=== PATIENT | male | born 1935 | race Caucasian/White ===

== ENCOUNTER 2018-04-07 06:01 | Inpatient (IN) | payer OTHER ==
--- NOTE | 2018-04-06 15:44 | GHP ---
DATE OF ADMISSION: 04/07/2018 HISTORY OF PRESENT ILLNESS: Patient is an 83-year-old man admitted for a right total knee arthroplas ty. His pain has limited his activities of daily living. It is painful to go up and down stairs. I t is painful walking. He has pain at night. He is aware of swelling and stiffness in both knees. Tonia farr has tried in the past activity modification and injection therapies. He is admitted for a right to mark knee arthroplasty. PAST MEDICAL HISTORY: He is treated for elevated cholesterol. He was treated with radioactive seed implantation for prostate cancer about 5 years ago. He experiences nocturia 3-4 times per night. No history of heart disease, stents, DVT, hepatitis, MRSA staph infections, sleep apnea or bleeding pro blems. CURRENT MEDICATIONS: Crestor 10 mg per day, Flomax 0.4 mg per day. ALLERGIES: Drug allergy: None. Metal allergy: None. Latex allergy: None. SOCIAL HISTORY: The patient is . He lives with his . He does not smoke cigarettes or dr ink alcohol. He is retired. PHYSICAL EXAMINATION: VITAL SIGNS: Height 5 feet 8 inches. Weight 173 pounds. BMI 23.6. EYES: C onjunctivae and sclerae are clear. Pupils are round and reactive. MOUTH: Good oral hygiene. He carlisle s complete upper and lower dentures. CHEST: Clear. HEART: Regular rhythm with no murmurs. EXTREM ITIES: Pertinent findings limited to his right knee. He has varus deformity. Medial joint line ten derness. He has an effusion. He has pseudolaxity of his medial collateral ligament. He has a 10 de gree flexion contracture and further flexion to 120 degrees. IMAGING: Films from March 12, 2018, show severe medial compartment degenerative arthritis. He i s [id number] in the medial compartment. Varus alignment is present. He also has significant baugh lofemoral arthritis in the right knee. IMPRESSION ON ADMISSION: 1. 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 He is prepared for right total knee arthroplasty. 2. Treatment for elevated cholesterol. 3. History of prostate cancer. PLAN: He will undergo a right total knee arthroplasty. The surgery has been described to him, inclu ding the risks, complications, expectations, and recovery time. I have stressed the importance of po stoperative physical therapy. Advised him that approximately 85% of patients are very satisfied with the result with total knee replacement. A small percentage of people are unhappy with their result , primarily because the knee continues to be painful. All his questions have been answered and he co nsents to surgery. Copy requested to: Dr. Osvaldo Valenzuela, [place] /[id number]/MODL
[~2018-04-07 06:01] MED LIST: POVIDONE-IODINE 20 ML in SODIUM CL IRRIG SOLUTION 500 ML IRR ONE; ROPIVACAINE 0.2% 80 MG, EPINEPHrine 0.2 MG, KETOROLAC TROMETHAMINE 30 MG in SYRINGE 0 ML IU ONE; TRANEXAMIC ACID 1,000 MG in NS 100 ML IV ONE; TRANEXAMIC ACID 3,000 MG in NS (SYRINGE) 50 ML IRR ONE
[2018-04-07] MEDS ORDERED: VANCOMYCIN 1 GM VIAL ONE (06:08)
[2018-04-07] MEDS ORDERED: TRANEXAMIC ACID 3,000 MG/50 ML BAG IRR ONE (06:08)
[2018-04-07] MEDS ORDERED: ceFAZolin 1 GM/5 ML SYR ONE (06:10)
[2018-04-07] MEDS ORDERED: GABAPENTIN 300 MG CAP PO ONE (06:29)
[2018-04-07] MEDS ORDERED: ACETAMINOPHEN 325 MG TAB PO ONE (06:29)
[2018-04-07] MEDS ORDERED: ONDANSETRON 4 MG/2 ML VIAL IVP ONE (06:29)
[2018-04-07] MEDS ORDERED: FAMOTIDINE 20 MG TAB PO ONE (06:29)
[2018-04-07] MEDS ORDERED: DEXAMETHASONE 4 MG/ML VIAL IVP ONE (06:29)
[2018-04-07] MEDS ORDERED: ceFAZolin 2 GM/DEXTROSE 100 ML IV ONE (06:29)
[2018-04-07] MEDS ORDERED: LIDOCAINE 1% 2 ML INJ ID PRN (06:31)
[2018-04-07] MEDS ORDERED: LR 1,000 ML IV ONE (06:31)
[2018-04-07] MEDS ORDERED: DEXAMETHASONE 4 MG/ML VIAL ONE (06:57)
--- NOTE | 2018-04-07 06:57 | PDHPUP ---
History & Physical Update H&P update statement: This history and physical update is based on an assessment of the patient which was completed after admission or registration (within 24 hours), but prior to the surgery/procedure. H&P update: H&P reviewed & patient examined
[2018-04-07] MEDS ORDERED: BUPIVACAINE/DEXTROSE 7.5MG/ML 2 ML SPINAL AMP SP ONE (07:07)
[2018-04-07] MEDS ORDERED: PROPOFOL 200 MG/20 ML VIAL ONE ×2 (07:07→08:06)
[2018-04-07] MEDS ORDERED: fentaNYL 100 MCG/2 ML INJ ONE (07:07)
--- NOTE | 2018-04-07 07:13 | PDANEPAE ---
ANE Past Medical History - Cardiovascular History Hx Hypertension: No Hx Arrhythmias: No Hx Chest Pain: No Hx Coronary Artery / Peripheral Vascular Disease: No Hx CHF / Valvular Disease: No Hx Palpitations: No - Pulmonary History Hx COPD: No Hx Asthma/Reactive Airway Disease: No Hx Recent Upper Respiratory Infection: No Hx Oxygen in Use at Home: No Hx Sleep Apnea: No Sleep Apnea Screening Result - Last Documented: Negative - Neurologic History Hx Cerebrovascular Accident: No Hx Seizures: No Hx Dementia: No - Endocrine History Hx Diabetes: No - Renal History Hx Renal Disorders: Yes Renal History Comment: SOME UA INCONT POST PROSTATECTOMY - Liver History Hx Hepatic Disorders: No - Neurological & Psychiatric Hx Hx Neurological and Psychiatric Disorders: No - Cancer History Hx Cancer: Yes Cancer History Comment: PROSTATE - Congenital Disorder History Hx Congenital Disorders: No - GI History Hx Gastrointestinal Disorders: No - Other Health History Other Health History: FULL DENTURES. OSTEOARTHRITIS - Chronic Pain History Chronic Pain: Yes (RT KNEE) - Surgical History Prior Surgeries: PROSTATECTOMY 2012. FELIX. MIGUEL ÁNGEL CATARACTS. RT IN HERNIA ANE Review of Systems Review of Systems: - Exercise capacity METS (RN): 4 METS ANE Patient History - Allergies Allergies/Adverse Reactions: No Known Allergies Allergy (Unverified 03/19/18 11:02) - Home Medications Home Medications: Ascorbic Acid [Vitamin C 500 mg (*)] 500 mg PO DAILY 03/19/18 [Last Taken Unknown] Aspirin [Aspirin 81mg (*)] 81 mg PO DAILY 03/19/18 [Last Taken Unknown] C/E/Zn/Cu/OM3/DHA/EPA/LUT/ZEAX [Preservision Areds 2 Softgel] 1 each PO BID [Last Taken Unknown] Calcium Carbonate/Vitamin D3 [CALCIUM 600 + VIT D TABLET] 1 each PO DAILY [Last Taken Unknown] Herbals/Supplements -Info Only 1 ea PO DAILY 03/19/18 [Last Taken Unknown] Multivitamins [Multivitamin (*)] 1 each PO DAILY 03/19/18 [Last Taken Unknown] Polyvinyl Alcohol/Povidone/Pf [Refresh Classic Eye Drops] 1 drop EACHEYE DAILY 03/19/18 [Last Taken Unknown] Rosuvastatin Calcium [Crestor 10mg (RX)] 10 mg PO DAILY 03/19/18 [Last Taken Unknown] Tamsulosin HCl [Flomax 0.4 MG (*)] 0.4 mg PO DAILY 03/19/18 [Last Taken Unknown] - NPO status NPO Since - Liquids (Date): 04/07/18 NPO Since - Liquids (Time): 06:40 NPO Since - Solids (Date): 04/06/18 NPO Since - Solids (Time): 18:00 - Smoking Hx Smoking Status: Never smoked ANE Labs/Vital Signs - Vital Signs Blood Pressure: 139/91 Heart Rate: 89 Respiratory Rate: 20 O2 Sat (%): 93 Height: 175.26 cm Weight: 78.925 kg ANE Physical Exam - Airway Neck exam: FROM Mallampati Score: Class 1 Mouth exam: dentures - Pulmonary Pulmonary: no respiratory distress, no rales or rhonchi, clear to auscultation - Cardiovascular Cardiovascular: regular rate and rhythym, no murmur, rub, or gallop, pulses symmetric bilaterally - ASA Status ASA Status: III ANE Anesthesia Plan Anesthesia Plan: spinal Regional Anesthesia: single shot NB, adductor canal FNB
[2018-04-07] MEDS ORDERED: ALBUTEROL 3 ML DEYVIAL IH PRN (07:43)
[2018-04-07] MEDS ORDERED: NALOXONE HCL 0.4 MG/ML INJ IVP PRN (07:43)
[2018-04-07] MEDS ORDERED: LR 500 ML IV PRN (07:43)
[2018-04-07] MEDS ORDERED: ONDANSETRON 4 MG/2 ML VIAL IVP PRN ×2 (07:43→09:15)
[2018-04-07] MEDS ORDERED: fentaNYL 100 MCG/2 ML INJ IVP PRN (07:43)
[2018-04-07] MEDS ORDERED: DEXAMETHASONE 4 MG/ML VIAL IVP PRN (07:43)
[2018-04-07] MEDS ORDERED: LIDOCAINE 2% 2 ML INJ ONE (07:45)
[2018-04-07] MEDS ORDERED: ROPIVACAINE HCL 150 MG/30 ML INJ ONE (07:45)
--- NOTE | 2018-04-07 08:57 | POSTOPPROG ---
Post Op Note Date of Operation: 04/07/18 Surgeon: Camacho Banegas Teacher Ballet: Asael/Arlin Anesthesiologist: Mauro Anesthesia: IV Sedation, Spinal Post-op Diagnosis: R knee arthritis Procedure: R TKA Inf/Abcess present in the surg proc area at time of surgery?: No EBL: 50-100 (ACB in PACU)
[2018-04-07] MEDS ORDERED: LACTULOSE 20 GM/30 ML UDCUP PO PRN (09:15)
[2018-04-07] MEDS ORDERED: MAGNESIUM HYDROXIDE 30 ML UDCUP PO PRN (09:15)
[2018-04-07] MEDS ORDERED: METOCLOPRAMIDE 10 MG/2 ML VIAL IVP PRN (09:15)
[2018-04-07] MEDS ORDERED: DIPHENOXYLATE/ATROPINE LOMOTIL 1 TAB PO PRN (09:15)
[2018-04-07] MEDS ORDERED: diphenhydrAMINE 25 MG CAP PO PRN (09:15)
[2018-04-07] MEDS ORDERED: PROMETHAZINE HCL 25 MG SUPPR PR PRN (09:15)
[2018-04-07] MEDS ORDERED: PROMETHAZINE HCL 25 MG/ML INJ IVP PRN (09:15)
[2018-04-07] MEDS ORDERED: POLYETHYLENE GLYCOL 3350 17 GM PKT PO PRN (09:15)
[2018-04-07] MEDS ORDERED: NS 500 ML IV PRN (09:15)
[2018-04-07] MEDS ORDERED: ONDANSETRON DISINTEGRATING 4 MG TAB PO PRN (09:15)
[2018-04-07] MEDS ORDERED: oxyCODONE IR 5 MG TAB PO PRN (09:15)
[2018-04-07] MEDS ORDERED: BISACODYL 10 MG SUPP PR PRN (09:15)
--- NOTE | 2018-04-07 09:39 | POSTANESTH ---
Post Anesthetic Evaluation Cardiovascular Status: Normal, Stable, Similar to Pre-Op Cond Respiratory Status: Normal, Stable, Similar to Pre-op Cond. Level of Consciousness/Mental Status: Can Participate in Eval Pain Control: Adequate, Prn Tx Ordered Nausea/Vomiting Control: Adequate, Prn Tx Ordered Complications Possibly Related to Anesthesia: None Noted
--- NOTE | 2018-04-07 10:28 | GOP ---
DATE OF OPERATION: 04/07/2018 SURGEON: Camacho Banegas MD NEUROSURGEON: Camacho Banegas MD. REFINERY OPERATOR COKING: Marck Vyas and Junior Oliveros. ANESTHESIA: Combination of Marcaine, spinal, IV sedation, and adductor canal block. ANESTHESIOLOGIST: Dr. Elayne Wade. PREOPERATIVE DIAGNOSIS: Right knee severe degenerative arthritis with varus deformity. POSTOPERATIVE DIAGNOSIS: Right knee severe degenerative arthritis with varus deformity. PROCEDURE PERFORMED: 04/07/2018, a right total knee arthroplasty, cemented, Burns and Nephew Journey II, posterior stabilized. FINDINGS: DESCRIPTION OF PROCEDURE: The patient was given 2 g of IV Ancef preoperatively within 60 minutes of surgery. He also received intravenous tranexamic acid at a dose of 1000 mg. He was placed on the op erating room table and given spinal anesthesia with Marcaine by Dr. Vanessa. He was then placed supi ne and given IV sedation. A Blanc catheter was not used. He wore a CHAN stocking and SCD on the nono perative leg. His right lower extremity was prepped with ChloraPrep from the upper thigh tourniquet to the tips of the toes. It was draped free using sterile sheets, towels, stockinette and Ioban plas tic drape. The lower leg was wrapped with compressive Coban. The leg was exsanguinated with elevati on and a 6-inch compressive wrap, and the pneumatic tourniquet was inflated to 250 mmHg. The World Health Organization time-out was performed to verify the correct patient identity and the c orrect surgical side and site. The [place] time-out was also performed. The International Battery[employer]o leg holding device was sterilely attached to the operating room table and used throughout the procedure to help position the knee. A straight midline incision made centered on the patella. Subcutaneous tissues were sharply divided, and hemostasis was obtained using electrocautery. A media l subcutaneous flap was developed, and the capsule and synovium were opened in a medial parapatellar fashion. Extensive degenerative changes were present in all 3 compartments. His medial capsule and periosteum were elevated off the rim of the medial tibial plateau all the way around to the posterome dial corner. His medial collateral ligament was aggressively released in order to balance the medial side of the knee and correct for the preop varus deformity. In order to improve exposure, his patella was prepared first. The original thickness of the patella was measured. Peripheral osteophytes were removed. I cut a flat surface on the back of the patella. It was sized for a 38 mm round resurfacing patellar component. I removed enough bone from the delgado lla such that the remaining bone plus the thickness of the patellar component recreated the original thickness of the patella. The composite thickness was 23 mm. The intramedullary alignment guide system was used to set up the distal femoral cut. The distal femu r was cut in 5 degrees of valgus. Because of a 10-15 degree preoperative flexion contracture, I made a +2 mm cut on the distal femur. The sizing jig was used to determine proper femoral sizing. He wa s a true size 5 without an anterior shift. The 5-in-1 cutting block was applied, and the anterior an d posterior condylar cuts and chamfer cuts were made. The size 5 was a little narrow from medial to lateral, however, it was the proper size in the anterior and posterior dimension. The final jig was used to remove the central portion of the distal femur to accommodate the posterior stabilized femora l component. I was careful to determine proper rotation by referencing off Whitesides line and other bony landmarks. Each cut was checked for accuracy. The femur was sized for a size 5 posterior stab ilized component. Next, the tibia was prepared. The proximal tibial cut was made using the extramedullary alignment gu matthew system. The cut was made in a few degrees of posterior slope. I was careful to achieve proper v arus valgus alignment and proper rotation. The posterior compartment was cleared of meniscal remnant s. Osteophytes were removed the back of the femoral condyles. With the trial components in place, h e was a little bit tight in both flexion and extension. I went back and removed 2 additional mm of b one from the proximal tibia. I then checked the flexion extension gaps, and they were equal and juan antonio nced. The tibia was sized for a size 5 component. With the trial components in place, I selected a 10 mm polyethylene posterior stabilized tibial insert. The knee came to full extension and flexed to 130 degrees. His collateral ligaments were stable and balanced in 90 degrees of flexion and full ex tension. The trial patellar button was applied, and tracking was checked. Tracking was excellent wi thout any digital pressure. 40 cc of the joint anesthetic cocktail were injected in the posterior capsule, the quadriceps muscle and tendon areas, and the subcutaneous tissues along the skin edges. The surfaces were prepared for cementing. They were carefully cleaned with the pulsating lavage and thoroughly dried. The CarboJet device was used to blow dry the cancellous surfaces. A double batch of high viscosity methylmethacrylate cement with 2 g of powdered vancomycin was mixed. While it was still in a doughy state, all 3 components were cemented in place. Excess cement was removed before i t hardened. The 10 mm trial tibial insert was re-tried and was the proper thickness. The actual component was in serted and locked into place. The knee was thoroughly irrigated 1 final time with a dilute Betadine solution. The tourniquet was deflated, the total tourniquet time was 54 minutes. I then instilled 50 cc of tra nexamic acid solution into the knee joint. The joint was packed with a lap sponge and wrapped with a 6-inch Krish and left in place for 3 or 4 minutes. The vastus medialis portion of the extensor mechanism was repaired with several interrupted figure-of -eight #2 FiberWire sutures. The capsule and synovium were closed first with multiple interrupted fi [id number] 0 PDS sutures, followed by a running #2 barbed Ethicon Stratafix PDO suture. The subcu taneous tissues were closed with a running 0 barbed Ethicon Stratafix Monoderm suture. The skin was closed with a running 3-0 barbed Ethicon Stratafix Monoderm subcuticular suture. The skin edges were sealed with half-inch Steri-Strips. The wound was covered with a large Mepilex waterproof dressing and a 6-inch compressive wrap. A long-leg CHAN stocking and SCD were applied, followed by the cooling device. The patient wore a stocking and SCD on the opposite leg during the procedure. The sacral M epilex dressing was applied. I used a size 5 cemented Burns and Nephew Oxinium posterior stabilized femoral component, size 5 ceme nted tibial base plate, a 10 mm posterior stabilized tibial insert and a 38 mm cemented round all-andrae yethylene resurfacing patellar component. The estimated blood loss following deflation of tourniquet was about 100 cc. The sponge and needle count were correct on 2 occasions. The patient was awakened from anesthesia, transferred to his hospital [facility] and taken to PACU in sat isfactory condition. There were no recognized intraoperative complications. In the PACU, for additi onal postoperative pain control, Dr. Vanessa performed an adductor canal block with an indwelling cat heter. Junior Oliveros and Marck Vyas acted as surgical assistants. Their assistance was a medical necess ity for safe completion of the procedure. Copy requested to: Dean Valenzuela, [place] Junior Oliveros [facility] /[id number]/MODL
--- NOTE | 2018-04-07 11:16 | PDMN ---
Medical Necessity Medical necessity: Pt meets inpt criteria per MD order and [facility] S-700, Knee Arthroplasty, Total. 83 y/o w/ severe medial compartment degenerative arthritis and significant patellofemoral arthritis admitted for R total knee arthroplasty. Anticipate >2MN, high risk post-op complications due to adv age> 65.
[2018-04-07] MEDS: CALCIUM CARB W/VIT D 500 MG TAB PO SCH (12:55)
[2018-04-07] MEDS: KETOROLAC 15 MG/1 ML SDV IVP SCH ×3 (13:48→23:20)
[2018-04-07] MEDS: LR 1,000 ML IV SCH ×2 (13:48→21:01)
[2018-04-07] MEDS: ACETAMINOPHEN 325 MG TAB PO SCH ×3 (14:20→23:32)
[2018-04-07] MEDS: ceFAZolin 2 GM/DEXTROSE 100 ML IV SCH ×2 (16:00→23:17)
[2018-04-07] MEDS: TAMSULOSIN HCL 0.4 MG CAP PO SCH (16:01)
[2018-04-07] MEDS: SENNOSIDES/DOCUSATE SODIUM TAB PO SCH (20:57)
[2018-04-07] MEDS: PRESERVISION AREDS2 FORMULA EYE VIT 1 EACH PO SCH (20:58)
[2018-04-07] MEDS: FAMOTIDINE 20 MG TAB PO SCH (20:58)
[2018-04-07] MEDS: ASPIRIN 325 MG TAB PO SCH (21:01)
[2018-04-08] MEDS: ACETAMINOPHEN 325 MG TAB PO SCH (02:46)
[2018-04-08] MEDS: KETOROLAC 15 MG/1 ML SDV IVP SCH (05:04)
--- NOTE | 2018-04-08 07:30 | SOAPPROG ---
SOAP Progress Note Assessment/Plan: Assessment: Afebrile. Awake and alert. Has been up multiple times to bathroom. No pain yet. H/H is good. Films look good. Mild knee swelling. Dsg is dry. Plan:Continue PT today. DC later today. Leg alignment film before discharge. 04/08/18 07:28 Objective: Vital Signs Temp Pulse Resp BP Pulse Ox 36.4 C 75 16 109/67 93 04/08/18 03:14 04/08/18 03:14 04/08/18 03:14 04/08/18 03:14 04/08/18 03:14 Laboratory Results 04/08/18 04:41 04/07/18 04/08/18 04/09/18 05:59 05:59 05:59 Intake Total 1137 Output Total 1135 Balance 1392 ICD10 Worksheet Patient Problems: Problems Problem Status Onset Osteoarthritis of right knee Acute
--- NOTE | 2018-04-08 07:32 | PDIAF ---
- Diagnosis Diagnosis: R knee OA Code Status: Full Code - Medication Management Discharge Medications: Medications to Continue on Transfer Ascorbic Acid [Vitamin C 500 mg (*)] 500 mg PO DAILY 03/19/18 [Last Taken Unknown] C/E/Zn/Cu/OM3/DHA/EPA/LUT/ZEAX [Preservision Areds 2 Softgel] 1 each PO BID [Last Taken Unknown] Calcium Carbonate/Vitamin D3 [CALCIUM 600 + VIT D TABLET] 1 each PO DAILY [Last Taken Unknown] Herbals/Supplements -Info Only 1 ea PO DAILY 03/19/18 [Last Taken Unknown] Multivitamins [Multivitamin (*)] 1 each PO DAILY 03/19/18 [Last Taken Unknown] Polyvinyl Alcohol/Povidone/Pf [Refresh Classic Eye Drops] 1 drop EACHEYE DAILY 03/19/18 [Last Taken Unknown] Rosuvastatin Calcium [Crestor] 10 mg PO DAILY 03/19/18 [Last Taken Unknown] Tamsulosin HCl [Flomax 0.4 MG (*)] 0.4 mg PO DAILY 03/19/18 [Last Taken Unknown] Acetaminophen [Tylenol 325mg (*)] 650 mg PO Q6HRS tab 04/08/18 [Last Taken Unknown] Aspirin [Aspirin 325 mg (*)] 325 mg PO DAILY tab 04/08/18 [Last Taken Unknown] Ferrous Sulfate [Slow Fe 140 MG (*)] 140 mg PO DAILY tab.er 04/08/18 [Last Taken Unknown] Ondansetron Odt [Zofran Odt 4 mg (*)] 4 mg PO Q4HRS PRN tab 04/08/18 [Last Taken Unknown] Sennosides/Docusate Sodium [Senokot-S] 1 - 2 tab PO BID tab 04/08/18 [Last Taken Unknown] celeCOXIB [Celebrex (*)] 200 mg PO DAILY cap 04/08/18 [Last Taken Unknown] oxyCODONE IR [Oxycodone Ir (*)] 5 - 10 mg PO Q3HRS PRN tab 04/08/18 [Last Taken Unknown] Discharge Medications: Refer to the Discharge Home Medication list for PRN reason. PICC Care - Routine: N/A - Orders Services needed: Home Care, Physical Therapy Home Care Face to Face: I certify that this patient was under my care and that I had the required [id number] encounter meeting the encounter requirements on the discharge day. My findings support the fact that the patient is homebound as defined in Home Care Face to Face Continued: CMS Chapter 7 Medicare Benefits Manual 30.1.1 , The condition of the patient is such that there exists a normal inability to leave home and consequently, leaving home would require a considerable and taxing effort. Isolation Type: None Diet Recommendation: no restrictions on diet Diet Texture: Regular Texture Diet Blanc: Not applicable Vince Stockings Discontinue Date: 1 week Wound Care Instructions: Keep clean and dry. You may shower. Activity/Weight Bearing Restrictions: WBAT. Activity as tolerated. Equipment: Zero Knee while in bed as tolerated. - Follow Up Care Current Providers and Referrals: GABY BAUMANN,GINNY [Other] Camacho Banegas MD [Medical Doctor] - 04/19/18
--- NOTE | 2018-04-08 07:53 | GDS ---
ADMISSION DIAGNOSIS: Right knee severe degenerative arthritis with varus deformity. DISCHARGE DIAGNOSIS: Right knee severe degenerative arthritis with varus deformity. OPERATION PERFORMED: 04/07/2018, a right total knee arthroplasty. POSTOPERATIVE COMPLICATIONS: None. CONDITION ON DISCHARGE: Improved. DESCRIPTION OF HOSPITAL COURSE: The patient was admitted to the hospital on the morning of surgery. His admission hemoglobin and hematocrit 12.5 and 37.1. The same day, under a combination of Marcain e, spinal, IV sedation, and adductor canal block he underwent a right total knee arthroplasty. Posto peratively, he was treated with multimodal DVT prophylaxis, including aspirin. On the first postoper ative day his hemoglobin and hematocrit were 10.4 and 31.0. He was seen by Physical Therapy and made good progress with ambulation and stairs. By the time of discharge, he was afebrile and was indepen dent walking with a walker. DISPOSITION: The patient is discharged to his home in [place]. He will have home physical therapy. He may progress to full weightbearing on the right as tolerated. Use CHAN stockings for 1 week. Cont inue aspirin 325 mg p.o. daily for 21 days. He has prescriptions for oxycodone and tramadol for pain control. Continue Celebrex 200 mg daily for 21 days. I will see him back in the office on April 19, 2018. If there are any problems, he is to call me at the office. Copy requested to: Dr. Osvaldo Valenzuela, [place] /[id number]/MODL
[2018-04-08] MEDS ORDERED: FERROUS SULFATE 140 MG TAB.ER PO SCH (09:00)
[2018-04-08] MEDS ORDERED: ROSUVASTATIN CALCIUM 10 MG TAB PO SCH (09:00)
[2018-04-08] MEDS ORDERED: CARBOXYMETHYLCELLULOSE 0.5% 0.4 ML DROPERETTE EACHEYE SCH (09:00)
--- NOTE | 2018-04-08 10:25 | PDPAINCON ---
Pain Management Consultation Patient referred by : Bassam - Subjective Pain is: no pain at all Side effects include: No drowsy, No itchiness, No nausea, No nausea/vomiting, No rash Activity: able to ambulate - Objective Technique: continuous peripheral nerve block Catheter site: clean, dry, intact, no erythema/edema/exudate Sensory and motor exam: consistent with block Vital signs: stable (S/p R TKA POD #1 with indwelling adductor canal catheter in place. Patient reporting no pain, no sensorimotor deficits. APS consulted to re-bolus AC catheter and remove it prior to discharge home today. This was done uneventfully with 0.5% ropivacaine 20ml injected incrementally with negative aspiration and continuous hemodynamic monitoring. Catheter removed with tip intact.)
[2018-04-08] MEDS ORDERED: LIPID EMULSION 20% 100 ML IV PRN (10:32)
[2018-04-08] MEDS: CALCIUM CARB W/VIT D 500 MG TAB PO SCH (11:25)
[2018-04-08] MEDS: PRESERVISION AREDS2 FORMULA EYE VIT 1 EACH PO SCH (11:25)
[2018-04-08] MEDS: SENNOSIDES/DOCUSATE SODIUM TAB PO SCH (11:25)
[2018-04-08] MEDS: ASPIRIN 325 MG TAB PO SCH (11:26)
[2018-04-08] MEDS: FAMOTIDINE 20 MG TAB PO SCH (11:26)
[2018-04-08] MEDS: TAMSULOSIN HCL 0.4 MG CAP PO SCH (11:28)
[2018-04-08 11:48] VITALS: BP 134/76
--- NOTE | 2018-04-08 12:10 | ASMTLACE ---
LACE Length of stay for Answers: 2 days current admission Acuity / Level of Answers: Yes Care: Did the patient have an inpatient admission? Comorbidities - select Answers: Opioid dependence all that apply / Chronic pain Other Notes: Hx of prostate cancer # of Emergency department Answers: 0 visits in the last 6 months Score: 10 Date Signed: 04/08/2018 12:10 PM Electronically Signed By:RANULFO Alfaro
--- NOTE | 2018-04-08 12:12 | ASMTCMCOM ---
CM Note CM Note Notes: Pt s/p OA of knee. PT and MD rec [facility], pt amendable. Pt to return to [facility] today. Pt has a lot of family support present at [facility]. [facility] can accept pt. Orders sent in iubenda. Pt address is [address] [place] [phone] phone verified. Date Signed: 04/08/2018 12:12 PM Electronically Signed By:RANULFO Alfaro
== END 2018-04-08 12:33 | disposition home health service (06) | DRG 470 ==
LOC: F3N 06:01 → OBSVTOIN 09:17 → F3N 10:48
PROVIDERS: ADMIT Orthopaedic Surgery; ATTEND Orthopaedic Surgery
PROC: 0SRC0J9 Replacement of Right Knee Joint with Synthetic Substitute, Cemented, Open Approach (ICD-10-PCS; principal; 2018-04-07 07:15)
DX: M17.11 Unilateral primary osteoarthritis, right knee (principal); E78.00 Pure hypercholesterolemia, unspecified; Z85.46 Personal history of malignant neoplasm of prostate
CPT/HCPCS: 97116-GP; 97161-GP; 97165-GO; C1713; J0171; J0690; J1100; J1885; J2405; J2704; J2795; J3010; J3370